=== PATIENT | male | born 1995 | race Caucasian/White ===

== ENCOUNTER 2021-01-12 14:04 | Emergency (ER) | payer OTHER ==
[~2021-01-12] VITALS: Ht 172.7 cm; Wt 127.0 kg
[2021-01-12] MEDS ORDERED: SERTRALINE HCL50 MG PO (15:28)
[2021-01-12] MEDS ORDERED: SERTRALINE HCL50 MG (15:28)
[2021-01-12] MEDS ORDERED: HYDROXYZINE HCL25 MG PO (15:28)
[2021-01-12] MEDS ORDERED: CARBIDOPA-LEVO1 EA10 PO (15:29)
[2021-01-12] MEDS ORDERED: TRAZODONE HCL50 MG PO (15:29)
[2021-01-12] MEDS ORDERED: ZYRTEC10 M3 PO (15:30)
[2021-01-12] MEDS ORDERED: GLUCOPHAGE500 MG PO (15:30)
== END 2021-01-12 15:55 | disposition home or self-care (01) ==
LOC: ED 14:04
DX: S16.1XXA Strain of muscle, fascia and tendon at neck level, initial encounter (principal); S00.83XA Contusion of other part of head, initial encounter; S00.03XA Contusion of scalp, initial encounter; S20.219A Contusion of unspecified front wall of thorax, initial encounter; R04.0 Epistaxis; Y04.8XXA Assault by other bodily force, initial encounter; Z88.8 Allergy status to other drugs, medicaments and biological substances; Z79.899 Other long term (current) drug therapy; Z79.84 Long term (current) use of oral hypoglycemic drugs
CPT/HCPCS: 70450; 70486; 71045; 71260; 72125; 72128; 80053; 82150; 82550; 83690; 85025; 86850; 86900; 86901; 96375; 99284-25; J2270; J2405; J7030; Q9967